=== PATIENT | male | born 1975 | race Caucasian/White ===

== ENCOUNTER → 2017-04-20 | Outpatient (CLI) | payer OTHER ==
--- NOTE | 2017-04-20 14:22 | RAD ---
Complete abdominal ultrasound 04/20/2017 Indication: Right renal lesion, seen on CT Available comparison studies: CT of the abdomen and pelvis June 25, 2014 Discussion: Ultrasound evaluation of the abdomen was performed. Static images were submitted PACS. Partially visualized pancreas is unremarkable. Partially visualized aorta and IVC are grossly unremarkable. Portal vein appears to be grossly patent. The common bile duct is nondilated at 2 mm. The liver is grossly unremarkable in appearance. No focal hepatic lesions are identified by ultrasound. No intrabiliary dilatation is seen. The right kidney measures 10.8 cm in length. A 1 cm hypoechoic cyst is seen in the mid right kidney. This lesion correlates with a cyst identified on CT scan of the abdomen and pelvis from June 2014. No other focal sonographic abnormalities are identified on the right. Left kidney is normal appearance measuring 11.2 cm in length. The spleen is normal in size measuring 9.6 cm in length. The bladder is unremarkable in appearance. Bilateral ureteral guidance are noted. The prevoid bladder volume is 253 cc post void bladder volume is 47 cc which is within normal limits. Impression: Approximately 1 cm cyst in the mid right kidney. Otherwise unremarkable abdominal ultrasound.
== END | disposition home or self-care (01) ==
LOC: US 09:11
PROVIDERS: ATTEND Family Medicine
DX: N28.1 Cyst of kidney, acquired (principal); M62.830 Muscle spasm of back; R30.0 Dysuria
CPT/HCPCS: 76700